=== PATIENT | female | born 1980 | race African-American/Black ===

== ENCOUNTER 2016-09-08 19:31 | Emergency (ER) | payer OTHER ==
[2016-09-08 19:51] VITALS: TEMP 98.7
--- NOTE | 2016-09-08 21:07 | XR ---
EXAMINATION TYPE: XR chest 2V DATE OF EXAM: 09/08/2016 8:58 PM COMPARISON: 10/29/2014 HISTORY: Short of breath TECHNIQUE: Frontal and lateral views of the chest are obtained. FINDINGS: Heart and mediastinum are normal. Lungs are clear. Diaphragm is normal. Bony thorax appear s normal. IMPRESSION: Normal chest. No change.
[2016-09-08] MEDS ORDERED: KETOROLAC 60 MG/2 ML VIAL IM STA (21:17)
--- NOTE | 2016-09-08 21:21 | ED ---
General Adult HPI - General Chief complaint: Upper Respiratory Infection Stated complaint: feeling ill; just returned from [place]; [place]; Time Seen by Provider: 09/08/16 20:32 Source: patient, RN notes reviewed Mode of arrival: ambulatory Limitations: no limitations - History of Present Illness Initial comments: The patient a 36-year-old female who presents emergency room today with a chief complaint of cough congestion over the last 2 days. She does admit to recent travel. She states that she has had increased cough congestion with rhinorrhea. Does admit to positive sputum production it's been green in color. Patient admits to chest pain when she coughs. Patient denies any body aches. Denies any recorded temperatures. Denies any recent nausea, vomiting, diarrhea. Headache, neck stiffness. Denies shortness of breath. - Related Data Home Medications Medication Instructions Recorded Confirmed Acyclovir [Zovirax] 1 tab PO BID 09/07/14 08/05/15 Chlorothiazide [Diuril] 1 tab PO DAILY 09/07/14 08/05/15 Cholecalciferol [Vitamin D3] 1 tab PO DAILY 09/07/14 08/05/15 Omeprazole [PriLOSEC] 1 tab PO DAILY 09/07/14 08/05/15 HYDROcodone/APAP 5-325MG [[place] 1 tab PO Q4HR PRN 08/05/15 08/05/15 5-325] Previous Rx's Medication Instructions Recorded Hydrocortisone [Anusol-Hc] 30 gm RC Q8HR PRN #30 cream..g. 08/05/15 Polyethylene Glycol 3350 [Miralax] 17 gm PO DAILY #14 packet 08/05/15 Amoxicillin/Potassium Clav 1 each PO Q12HR #20 tab 09/08/16 [Augmentin 875-125 Tablet] Fluticasone Propionate [Flonase 1 - 2 spray EA NOSTRIL DAILY 5 Days 09/08/16 Allergy Relief] Ibuprofen [Motrin] 600 mg PO Q6HR PRN #40 day 09/08/16 Allergies Allergy/AdvReac Type Severity Reaction Status Date / Time No Known Allergies Allergy Verified 09/08/16 19:45 Review of Systems ROS Statement: Those systems with pertinent positive or pertinent negative responses have been documented in the HPI. ROS Other: All systems not noted in ROS Statement are negative. Past Medical History Past Medical History: No Reported History Additional Past Medical History / Comment(s): STACIE CHEN History of Any Multi-Drug Resistant Organisms: None Reported Past Surgical History: Back Surgery, Section, Hernia Repair Additional Past Surgical History / Comment(s): TUMOR REMOVAL ON STOMACH, back pain Past Psychological History: No Psychological Hx Reported Smoking Status: Current every day smoker Past Alcohol Use History: Occasional Past Drug Use History: None Reported General Exam - General Exam Comments Initial Comments: General: The patient is awake and alert, in no distress, and does not appear acutely ill. Eye: Pupils are equal, round and reactive to light, extra-ocular movements are intact. No nystagmus. There is normal conjunctiva bilaterally. No signs of icterus. Ears, nose, mouth and throat: There are moist mucous membranes and no oral lesions. Tender over the maxillary sinuses. Neck: The neck is supple, there is no tenderness or JVD. Cardiovascular: There is a regular rate and rhythm. No murmur, rub or gallop is appreciated. Pain reproduced on palpation anterior chest wall. Respiratory: Lungs are clear to auscultation, respirations are non-labored, breath sounds are equal. No wheezes, stridor, rales, or rhonchi. Gastrointestinal: Soft, non-distended, non-tender abdomen without masses or organomegaly noted. There is no rebound or guarding present. No CVA tenderness. Bowel sounds are unremarkable. Musculoskeletal: Normal ROM, no tenderness. Strength 5/5. Sensation intact. Pulses equal bilaterally 2+. Neurological: A&O x 3. CN II-XII intact, There are no obvious motor or sensory deficits. Coordination appears grossly intact. Speech is normal. Skin: Skin is warm and dry and no rashes or lesions are noted. Psychiatric: Cooperative, appropriate mood & affect, normal judgment. Limitations: no limitations Course Vital Signs 09/08/16 19:48 Temperature 98.7 F Pulse Rate 69 Respiratory 17 Rate Blood Pressure 147/75 O2 Sat by Pulse 100 Oximetry EKG Findings - EKG Comments: EKG Findings:: EKG performed at 2050: A 12-lead EKG was performed and interpreted by me as showing the following: Rate is 67, and rhythm is normal sinus. There are normal QRS complexes and normal R-wave progression. ST segments have no elevation or depression, and HI segments appear normal. Medical Decision Making - Medical Decision Making Case discussed in detail with attending physician Dr. Leon. Chest x-ray negative. No sign of pneumonia. EKG shows normal sinus rhythm. Pain reproduced on palpation. Pulse currently 67%. Pulse ox 100%. No pleuritic pain. Patient does have tenderness over sinuses of the chin for sinus infection. Advised follow-up family doctor over the next 2 days return to emergency room if any symptoms increase or worsen or for any other concerns. Disposition Clinical Impression: Acute sinusitis Disposition: HOME SELF-CARE Condition: Good Instructions: Sinusitis (ED) Additional Instructions: Please use medication as discussed. Please follow-up with family doctor in the next 2 days of symptoms have not improved. Please return to emergency room if the symptoms increase or worsen or for any other concerns. Prescriptions: Amoxicillin/Potassium Clav [Augmentin 875-125 Tablet] 1 each PO Q12HR #20 tab Fluticasone Propionate [Flonase Allergy Relief] 1 - 2 spray EA NOSTRIL DAILY 5 Days Ibuprofen [Motrin] 600 mg PO Q6HR PRN #40 day PRN Reason: Pain Time of Disposition: 21:19
[2016-09-08 21:34] VITALS: BP 122/84; PULSE 67; RESP 16
== END 2016-09-08 21:37 | disposition home or self-care (01) ==
LOC: EC 19:31
DX: J01.90 Acute sinusitis, unspecified (principal); R07.9 Chest pain, unspecified; F17.200 Nicotine dependence, unspecified, uncomplicated; Z79.899 Other long term (current) drug therapy
CPT/HCPCS: 99283; 96372; 93005; 71020; J1885

== ENCOUNTER → 2016-10-01 | Outpatient (CLI) | payer OTHER ==
--- NOTE | 2016-10-01 12:08 | MM ---
Reason for exam: follow-up at short interval from prior study. Last mammogram was performed 8 months ago. History: Family history of breast cancer in maternal grandmother at age 50, breast cancer in mother at age 50, and breast cancer in paternal grandmother at age 60. Physical Findings: Nurse did not find any significant physical abnormalities on exam. MG Diagnostic Mammo w CAD JAD Bilateral CC and MLO view(s) were taken. ML, spot compression CC, and spot compression MLO view(s) were taken of the right breast. Prior study comparison: February 09, 2016, right breast MG diagnostic mammo RT w CAD. August 25, 2015, right breast MG 3d work up w/cad RT. There are scattered fibroglandular densities. There is no discrete abnormality including area of concern. No significant new findings when compared with previous films. These results were verbally communicated with the patient and result sheet given to the patient on 10/01/16. ASSESSMENT: Negative, BI-RAD 1 RECOMMENDATION: Routine screening mammogram of both breasts in 1 year.
== END | disposition home or self-care (01) ==
LOC: RADMAMWWP 10:20
PROVIDERS: ATTEND Family Medicine
DX: R92.8 Other abnormal and inconclusive findings on diagnostic imaging of breast (principal)

== ENCOUNTER → 2017-03-19 | Outpatient (CLI) | payer OTHER | END | disposition home or self-care (01) | LOC: LABWHC1 09:07 | PROVIDERS: ATTEND Nurse Practitioner | DX: F31.12 Bipolar disorder, current episode manic without psychotic features, moderate (principal) | CPT/HCPCS: 36415; 80183 ==

== ENCOUNTER 2017-06-14 10:23 | Emergency (ER) | payer OTHER ==
[2017-06-14 10:38] VITALS: BP 102/67; PULSE 86; RESP 16; TEMP 98.2
--- NOTE | 2017-06-14 11:05 | ED ---
General Adult HPI - General Chief complaint: Recheck/Abnormal Lab/Rx Stated complaint: BLOOD IN STOOL, CANT SIT Time Seen by Provider: 06/14/17 10:42 Source: patient, RN notes reviewed Mode of arrival: ambulatory Limitations: no limitations - History of Present Illness Initial comments: chief complaint and history of present illness this is a 37-year-old female here with a complaint of having a diagnosis of rectal fissure May but she can't get a prescription filled as prescribed by your doctor. The prescription was Anusol HC. No abdominal pain. Patient reports that she occasionally has bleeding even after a bowel movement in the drips. Itchy area. Ongoing for a month. - Related Data Home Medications Medication Instructions Recorded Confirmed Acyclovir [Zovirax] 1 tab PO BID 09/07/14 08/05/15 Chlorothiazide [Diuril] 1 tab PO DAILY 09/07/14 08/05/15 Cholecalciferol [Vitamin D3] 1 tab PO DAILY 09/07/14 08/05/15 Omeprazole [PriLOSEC] 1 tab PO DAILY 09/07/14 08/05/15 HYDROcodone/APAP 5-325MG [[place] 1 tab PO Q4HR PRN 08/05/15 08/05/15 5-325] Previous Rx's Medication Instructions Recorded Hydrocortisone [Anusol-Hc] 30 gm RC Q8HR PRN #30 cream..g. 08/05/15 Polyethylene Glycol 3350 [Miralax] 17 gm PO DAILY #14 packet 08/05/15 Amoxicillin/Potassium Clav 1 each PO Q12HR #20 tab 09/08/16 [Augmentin 875-125 Tablet] Fluticasone Propionate [Flonase 1 - 2 spray EA NOSTRIL DAILY 5 09/08/16 Allergy Relief] Days ml Ibuprofen [Motrin] 600 mg PO Q6HR PRN #40 day 09/08/16 Allergies Allergy/AdvReac Type Severity Reaction Status Date / Time No Known Allergies Allergy Verified 06/14/17 10:37 Review of Systems ROS Statement: Those systems with pertinent positive or pertinent negative responses have been documented in the HPI. review of systems no other complaints this time. Only itchy rectal area with occasional bleeding after large hard bowel movements. The patient is taking pain medication which can cause her constipation. She is also trying to take stool softeners and roughage for diet. Past medical problems none. Surgeries back surgery, ,Hernia repair and lipoma removal. Family history grandmother had breast cancer. The patient denies any ALLERGIES she does smoke one pack of cigarettes every 10 days. She drinks alcohol socially. ROS Other: All systems not noted in ROS Statement are negative. Past Medical History Past Medical History: No Reported History Additional Past Medical History / Comment(s): STACIE CHEN History of Any Multi-Drug Resistant Organisms: None Reported Past Surgical History: Back Surgery, Section, Hernia Repair Additional Past Surgical History / Comment(s): TUMOR REMOVAL ON STOMACH, back pain Past Psychological History: No Psychological Hx Reported Smoking Status: Current every day smoker Past Alcohol Use History: Occasional Past Drug Use History: None Reported General Exam - General Exam Comments Initial Comments: physical examination pertinent to the patient's visit Vital signs show temperature 98.2 pulse 86 referred rate 16 pulse ox on percent room air blood pressure 102/67. Physical examination finds head normocephalic eyes PERRLA. No chest pain or shortness of breath no wheezing. No abdominal pain no nausea no vomiting. Patient rectal exam was performed with the help of registered nurse Anjali. The patient has a very tight rectal sphincter. No blood was noted on the examining finger. She was recently diagnosed with a fissure. Limitations: no limitations Course Vital Signs 06/14/17 10:33 Temperature 98.2 F Pulse Rate 86 Respiratory 16 Rate Blood Pressure 102/67 O2 Sat by Pulse 100 Oximetry Medical Decision Making - Medical Decision Making medical decision-making. The patient is advised increase her fluids and her roughage in her stool softeners. Take his few of her [place] as she can as this will cause constipation and possible worsening and prolongation of her fissure. She is to use Tucks or preparation H or [id number] 0.1% hydrocortisone to help control itching and 8 in healing. Advised to follow-up with her family physician. Disposition Clinical Impression: Fissure in ano Disposition: HOME SELF-CARE Condition: Fair Instructions: Anal Fissure (ED) Additional Instructions: Increase fluids, stool softeners, take fewer narcotic pain pills disease will increase constipation. Follow-up with your family doctor Referrals: Zac Holliday MD [Primary Care Provider] - 1-2 days Time of Disposition: 11:04
== END 2017-06-14 11:18 | disposition home or self-care (01) ==
LOC: EC 10:23
DX: K60.2 Anal fissure, unspecified (principal); F17.200 Nicotine dependence, unspecified, uncomplicated; Z79.899 Other long term (current) drug therapy
CPT/HCPCS: 99283

== ENCOUNTER → 2017-10-27 | Outpatient (CLI) | payer OTHER | END | disposition home or self-care (01) | LOC: LABWHC1 11:08 | PROVIDERS: ATTEND Nurse Practitioner | DX: F31.12 Bipolar disorder, current episode manic without psychotic features, moderate (principal) | CPT/HCPCS: 36415; 80183 ==

== ENCOUNTER 2017-12-31 08:07 | Day surgery (SDC) | payer OTHER ==
[~2017-12-31 08:07] MED LIST: LACTATED RINGERS 1,000 ML IV SCH
[2017-12-31 09:22] LABS: Glucose,Whole Blood 104 mg/dL (75-99)
[2017-12-31 09:24] VITALS: RESP 16; TEMP 97.6
[2017-12-31] MEDS ORDERED: LIDOCAINE 1% 20 ML VIAL (10MG/ML) FOR IV START INTRADERMA ONE (09:24)
[2017-12-31] MEDS ORDERED: MIDAZOLAM 2 MG/2 ML VIAL ONE (09:31)
[2017-12-31] MEDS ORDERED: PROPOFOL 10 MG/ML 20 ML VIAL IV ONE (09:31)
[2017-12-31] MEDS ORDERED: LIDOCAINE 1% INJ 10MG/ML (20 ML MDV) ONE (09:31)
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
--- NOTE | 2017-12-31 09:49 | P.PCN ---
Date of Procedure: 12/31/17 Procedure(s) Performed: PREOPERATIVE DIAGNOSIS: Rectal bleeding POSTOPERATIVE DIAGNOSIS: Small hemorrhoids PROCEDURE: Colonoscopy ANESTHESIA: MAC SURGEON: Isiah Sherman M.D. SPECIMENS: None ENDOSCOPIC PROCEDURE: The patient was placed on the endoscopy table in the left decubitus position. The Olympus colonoscope was inserted into the anus and passed under direct visualization to the base of the cecum. The appendiceal orifice was visualized. From that point the scope was slowly withdrawn inspecting all surfaces carefully. There were no neoplastic inflammatory or polypoid lesions throughout the cecum, ascending, transverse, descending, sigmoid and rectum. There was no diverticulosis noted. Digital rectal examination revealed small hemorrhoids without any evidence of recent or active bleeding. No fissure was seen. The patient was taken to the recovery room in stable condition per anesthesia guidelines. RECOMMENDATIONS: Increase fiber. Follow-up of bleeding persists.
[2017-12-31 10:29] VITALS: BP 139/72; PULSE 47
== END 2017-12-31 10:49 | disposition home or self-care (01) ==
LOC: ORWHC2ENDO 08:07
PROVIDERS: ATTEND Surgery
DX: K62.5 Hemorrhage of anus and rectum (principal); K64.9 Unspecified hemorrhoids; K59.00 Constipation, unspecified; F17.210 Nicotine dependence, cigarettes, uncomplicated; Z79.899 Other long term (current) drug therapy
CPT/HCPCS: 45378; 81025; J2250; J2001; J2704

== ENCOUNTER 2018-09-30 16:56 | Emergency (ER) | payer OTHER ==
[2018-09-30 17:37] VITALS: BP 121/74; PULSE 62; RESP 18; TEMP 98.6
[2018-09-30] MEDS ORDERED: Acetaminophen-Codeine 300-30mg TAB PO STA (17:52)
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
--- NOTE | 2018-09-30 18:55 | XR ---
EXAMINATION TYPE: XR forearm RT DATE OF EXAM: 09/30/2018 COMPARISON: NONE HISTORY: Wrist pain arm pain TECHNIQUE: 2 views FINDINGS: Radius and ulna appear intact. I see no fracture nor dislocation. Elbow joint is intact. Ca rpal bones are intact. IMPRESSION: Negative right forearm exam.
--- NOTE | 2018-09-30 18:58 | XR ---
EXAMINATION TYPE: XR wrist complete RT DATE OF EXAM: 09/30/2018 COMPARISON: NONE HISTORY: Wrist pain TECHNIQUE: 4 views FINDINGS: Carpal bones are intact. I see no fracture nor dislocation. Joint spaces are fairly normal. IMPRESSION: Negative right wrist exam.
--- NOTE | 2018-09-30 19:03 | XR ---
EXAMINATION TYPE: XR hand complete RT DATE OF EXAM: 09/30/2018 COMPARISON: NONE HISTORY: Wrist pain TECHNIQUE: 4 views FINDINGS: Metacarpals are intact. I see no fracture nor dislocation. Joint spaces are fairly normal. There are no erosions. IMPRESSION: Negative right hand exam.
== END 2018-09-30 20:25 | disposition home or self-care (01) ==
LOC: EC 16:56
DX: S63.501A Unspecified sprain of right wrist, initial encounter (principal); H91.90 Unspecified hearing loss, unspecified ear; G61.0 Guillain-Barre syndrome; F17.200 Nicotine dependence, unspecified, uncomplicated; Z79.899 Other long term (current) drug therapy; W19.XXXA Unspecified fall, initial encounter; Y93.89 Activity, other specified
CPT/HCPCS: 99284

== ENCOUNTER → 2019-01-20 | Outpatient (CLI) | payer OTHER ==
--- NOTE | 2019-01-20 10:38 | US ---
EXAMINATION TYPE: US pelvic complete DATE OF EXAM: 01/20/2019 COMPARISON: US 03/23/2013 CLINICAL HISTORY: R10.32 LLQ ABD PAIN,R19.00 Tubal ligation, LLQ pain when doctor pushed on belly. N o positive test. TECHNIQUE: Transabdominal sonographic images of the pelvis were acquired. Date of LMP: 12/23/2018 EXAM MEASUREMENTS: Uterus: 9.3 x 3.9 x 4.9 cm Endometrial Stripe: 0.5 cm Right Ovary: 3.2 x 1.2 x 1.9 cm Left Ovary: 2.7 x 1.5 x 2.0 cm 1. Uterus: Anteverted wnl 2. Endometrium: wnl 3. Right Ovary: wnl 4. Left Ovary: wnl 5. Bilateral Adnexa: wnl 6. Posterior cul-de-sac: wnl IMPRESSION: Unremarkable pelvic ultrasound. No ovarian cyst is seen nor endometrial thickening.
== END | disposition home or self-care (01) ==
LOC: RADUSWWP 09:40
PROVIDERS: ATTEND Family Medicine
DX: R10.32 Left lower quadrant pain (principal); N85.8 Other specified noninflammatory disorders of uterus
CPT/HCPCS: 76856

== ENCOUNTER → 2020-08-22 | Outpatient (CLI) | payer OTHER ==
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
== END ==
CPT/HCPCS: 99211

== ENCOUNTER → 2024-08-26 | Outpatient (CLI) | payer OTHER ==
--- NOTE | 2024-08-26 14:56 | MM ---
Reason for Exam: Screening (asymptomatic). Last mammogram was performed 7 year(s) and 11 month(s) ago. Patient History: Menarche at age 7. First Full-Term at age 19. Breast cancer. Paternal grandmother had breast cancer, age 60. Maternal grandmother had breast cancer, age 50. Mother had breast cancer, age 50. Prior Study Comparison: 08/25/2015 Right Diagnostic Mammogram, [facility]. 02/09/2016 Right Diagnostic Mammogram, [facility]. 10/01/2016 Bilateral Diagnostic Mammogram, [facility]. Tissue Density: The breasts are heterogeneously dense, which may obscure small masses. Findings: Analyzed By CAD. Stable small 5 mm circumscribed mass in the right breast. There is no suspicious group of microcalcifications or new or enlarging suspicious mass in either breast. Overall Assessment: Benign, BI-RAD 2 Management: Screening Mammogram of both breasts in 1 year. . Patient should continue monthly self-breast exams. A clinical breast exam by your physician is recommended on an annual basis. This exam should not preclude additional follow-up of suspicious palpable abnormalities. Note on Rama scores and lifetime risk: 1. A Rama score greater than 3% is considered moderate risk. If this is the case, consider specialist referral to assess eligibility for a risk reducing agent. 2. If overall lifetime risk for the development of breast cancer is 20% or higher, the patient may qualify for future screening with alternating mammogram and breast MRI. [facility], , 08/26/2024 2:54 PM. Electronically signed and approved by: Otto Bui M.D.
== END | disposition home or self-care (01) ==
LOC: RADMAMWWP 13:21
PROVIDERS: ATTEND Family Medicine
DX: Z12.31 Encounter for screening mammogram for malignant neoplasm of breast (principal); R92.333 Mammographic heterogeneous density, bilateral breasts; Z80.3 Family history of malignant neoplasm of breast
CPT/HCPCS: 77063; 77067